=== PATIENT | male | born 1995 | race African-American/Black ===

== ENCOUNTER 2024-08-16 23:59 | Emergency (ER) | payer SELFPAY ==
[~2024-08-16] VITALS: Ht 182.9 cm; Wt 68.2 kg
[~2024-08-16 23:59] MED LIST: NOCURR
[2024-08-17 00:25] VITALS: BP 99/77; PULSE 89; RESP 18; TEMP 94.4; O2SAT 99
[2024-08-17 00:55] LABS: COVID AG,FIA SOURCE NASAL SWAB
[2024-08-17 01:21] LABS: INFLUENZA TYPE A NEGATIVE FOR TYPE A (NEGATIVE); INFLUENZA TYPE B NEGATIVE FOR TYPE B (NEGATIVE); SARS-COV2 (COVID) ANTIGEN,FIA Negative (Negative)
[2024-08-17] MEDS ORDERED: GUAIFDM PO (01:30)
[2024-08-17] MEDS ORDERED: ACET-66 PO (01:30)
[2024-08-17] MEDS ORDERED: IBUP-1554 PO (01:30)
[2024-08-17] MEDS ORDERED: DIPH50CA37 PO (01:30)
[2024-08-17] MEDS: IBUPROFEN 600 MG TABLET PO ONE (02:11)
[2024-08-17] MEDS: GuaiFENesin/D-METHORPHAN [SUGAR-FREE] 200-20MG/10 ML SYRUP UDCUP PO ONE (02:11)
[2024-08-17] MEDS: ACETAMINOPHEN 500 MG TABLET PO ONE (02:11)
[2024-08-17] MEDS: DiphenhydrAMINE HCL 25 MG CAPSULE PO ONE (02:11)
[2024-08-17] MEDS ORDERED: ACET-3238 PO (02:27)
[2024-08-17] MEDS ORDERED: DIPH-1164 PO (02:27)
[2024-08-17] MEDS ORDERED: IBUP-2853 PO (02:27)
== END 2024-08-17 02:47 | disposition home or self-care (01) ==
LOC: EMS 08-17 00:02
DX: J06.9 Acute upper respiratory infection, unspecified (principal); B30.9 Viral conjunctivitis, unspecified; Z20.822 Contact with and (suspected) exposure to COVID-19
CPT/HCPCS: 87804; 99284; Z7502; Z7610